=== PATIENT | female | born 1980 ===

== ENCOUNTER 2022-06-13 08:00 | Outpatient (CLI) | payer SELFPAY ==
--- NOTE | 2022-06-13 15:48 | XRAY Report ---
PROCEDURE: Cervical Spine 2 View INDICATIONS: NECK PX TECHNIQUE: 3 view(s) of the cervical spine were acquired. COMPARISON: None. FINDINGS: Bones: No fractures or dislocations to the T1 level. The lateral masses of C1 appear intact on the odontoid view. No suspicious bony lesions. Soft tissues: No prevertebral soft tissue swelling. IMPRESSION: No acute abnormality of the cervical spine. Reviewed by: Gibran Sarmiento on 06/13/2022 3:46 PM PDT Approved by: Gibran Sarmiento on 06/13/2022 3:46 PM PDT Station ID: [id number]
--- NOTE | 2022-06-13 15:51 | XRAY Report ---
PROCEDURE: Thoracic Spine 2 View INDICATIONS: THORACIC BACK PX TECHNIQUE: 2 views of the thoracic spine were acquired. COMPARISON: None. FINDINGS: Bones: No fractures or dislocations. Apparent curvature of the thoracolumbar spine with the apex to the left is probably positional since this is not seen on the lumbar spine x-rays. No suspicious bony lesions. 12 pairs of ribs are noted, and appear intact where visualized. Soft tissues: No paravertebral stripe thickening. IMPRESSION: No acute abnormality of the thoracic spine. Reviewed by: Gibran Sarmiento on 06/13/2022 3:49 PM PDT Approved by: Gibran Sarmiento on 06/13/2022 3:49 PM PDT Station ID: [id number]
--- NOTE | 2022-06-13 15:52 | XRAY Report ---
PROCEDURE: Lumbar Spine 2 View INDICATIONS: LOW BACK PX TECHNIQUE: 3 views of the lumbar spine were acquired. COMPARISON: None. FINDINGS: Bones: 3 [id number] vertebrae are present. There is normal bony alignment. No vertebral body compression fractures. No suspicious bony lesions. Soft tissues: Overlying bowel gas pattern is normal. No suspicious soft tissue calcifications. IMPRESSION: No acute abnormality of the lumbar spine. Reviewed by: Gibran Sarmiento on 06/13/2022 3:51 PM PDT Approved by: Gibran Sarmiento on 06/13/2022 3:51 PM PDT Station ID: [id number]
== END 2022-06-13 23:59 | disposition home or self-care (01) ==
LOC: DI.N 08:00
PROVIDERS: ATTEND Family Medicine
DX: M54.2 Cervicalgia (principal); M54.6 Pain in thoracic spine; M54.50 Low back pain, unspecified